=== PATIENT | female | born 1990 | race Caucasian/White ===

== ENCOUNTER 2017-01-11 10:09 | Emergency (ER) | payer BC, OTHER ==
[2017-01-11 10:59] LABS: Bilirubin Negative (Negative); Blood, Urine Negative (Negative); Clarity Clear (Clear); Glucose, Urine (Dipstick) Negative (Negative); Leukocyte Trace (Negative); Nitrite Negative (Negative); Protein, Urine (Dipstick) Trace mg/dL (Neg-Trace)
[2017-01-11 11:00] LABS: Bacteria/HPF None Seen HPF (None Seen); Pregnancy Test - Urine (BHCG) NEGATIVE (NEGATIVE); Pregu Control Bar Appear? YES (CONTROL BAR); RBC/HPF None Seen HPF (0-3); WBC/HPF 0-3 HPF (0-3)
[2017-01-11] MEDS ORDERED: cefTRIAXone\\ROCEPHIN 250 MG VIAL ONE (11:12)
[2017-01-11] MEDS ORDERED: Lidocaine 1% 20 ML MDV ONE (11:12)
[2017-01-11] MEDS ORDERED: Azithromycin 250 MG TAB ONE (11:13)
[2017-01-12 16:43] LABS: Chlamydia by PCR Not Detected (NotDetected); GC by PCR Not Detected (NotDetected)
== END 2017-01-11 11:58 | disposition home or self-care (01) ==
LOC: NAV ERS 10:09
DX: N70.03 Acute salpingitis and oophoritis (principal); N73.9 Female pelvic inflammatory disease, unspecified; F90.9 Attention-deficit hyperactivity disorder, unspecified type; Z79.899 Other long term (current) drug therapy
CPT/HCPCS: 81003; 81015; 81025; 87491; 87591; 96372; J0696; J2001